=== PATIENT | female | born 1985 | race Caucasian/White ===

== ENCOUNTER → 2021-11-26 13:52 | Outpatient (BNVA) | payer SELFPAY | PROVIDERS: Family Provider Nurse Practitioner Family; PCP Nurse Practitioner Family; Visit Provider Nurse Practitioner Family | DX: R10.9 Unspecified abdominal pain (principal); A64 Unspecified sexually transmitted disease | CPT/HCPCS: 81000; 81025 ==

== ENCOUNTER → 2021-12-03 09:50 | Outpatient (BNVA) | payer SELFPAY | PROVIDERS: Family Provider Nurse Practitioner Family; PCP Nurse Practitioner Family; Visit Provider Nurse Practitioner Family | DX: A64 Unspecified sexually transmitted disease (principal); Z72.51 High risk heterosexual behavior | CPT/HCPCS: 87491; 87591; 87661 ==

== ENCOUNTER → 2022-04-07 09:37 | Outpatient (BNVA) | payer SELFPAY | PROVIDERS: Family Provider Nurse Practitioner Family; PCP Nurse Practitioner Family; Visit Provider Nurse Practitioner Family | DX: N89.8 Other specified noninflammatory disorders of vagina (principal) | CPT/HCPCS: 81003; 87070; 87205 ==

== ENCOUNTER 2022-05-09 08:39 | Emergency (ER) | payer MEDICAID, SELFPAY ==
[2022-05-09 08:53] VITALS: BP 117/81; BMI 30.1
--- NOTE | 2022-05-09 09:08 | XRR_ITS ---
PROCEDURE INFORMATION: Exam: XR Left Shoulder Exam date and time: 05/09/2022 9:17 AM Age: 37 years old Clinical indication: Pain; Upper arm; Left TECHNIQUE: Imaging protocol: Radiologic exam of the Left shoulder. Views: 2 or more views. COMPARISON: CR XR cervical spine 3V* [id number] 08/30/2018 9:52 AM FINDINGS: Bones/joints: The glenohumeral and acromioclavicular joints are normally aligned. No acute fracture is seen. No significant degenerative changes Lungs: 4 mm nodule in the partially visualized left upper lung possibly a granuloma. Soft tissues: Unremarkable. XR/XR shoulder LT min 2V* [id number] IMPRESSION: 1. No fracture or dislocation in the shoulder joint. No significant degenerative changes. 2. 4 mm nodule in the partially visualized left upper lung possibly a granuloma.
[2022-05-09] MEDS: ketorolac 30 mg/mL INJ 15 MG IM (09:16)
--- NOTE | 2022-05-09 09:20 | W.ED.EXTPRO ---
HPI - Extremity Problem General: Chief complaint: Extremity Problem,Nontraumatic Stated complaint: Sugar problems Time Seen by Provider: 05/09/22 08:59 History of Present Illness: 37-year-old female presents with left shoulder pain and left upper back pain. She reports that she think she has a pinched nerve patient saw her primary care provider 4 days ago and started on 3 days of prednisone and Flexeril. She reports that she continues to have pain. Patient has no known injury. She has no decreased range of motion. She is no fevers chills or other systemic complaints. Review of Systems General: Reports: 10 or more systems reviewed and unremarkable except in HPI and below Musc: Reports: back pain and joint pain; Denies: neck pain, extremity swelling or joint redness PFSH ED PFSH: Social History Smoking and tobacco status: never smoked Second hand smoke exposure: No Smoking risk assessment/counseling performed?: Yes Alcohol intake: never Desire information about alcohol rehabilitation?: No Counseling given: No Desire information about substance/drug rehabilitation?: No Counseling given: No Adopted: No Caregiver/support person: No Lives independently: Yes Household members: children Housing: House Marital status: Single Number of children: 4 Highest education level completed: Associate Degree: Occupational, Technical, Vocational Program service: No Current occupational status: employed History of recent travel: No Physical Exam Const: COMMON NORMALS: no acute distress, patient oriented x3, no limitations and alert Chest: COMMONS NORMALS: normal inspection of the chest Resp: COMMON NORMALS: normal respiratory effort and No retractions Cardio: COMMON NORMALS: regular rate and regular rhythm RATE: regular rate RHYTHM: regular rhythm Extremity: COMMON NORMALS: normal to inspection, full ROM, no joint enlargement and no clubbing, cyanosis or edema NARRATIVE EXTREMITY EXAM: Tenderness to palpation, left paraspinal, left posterior shoulder along trapezius distribution. No neck tenderness. No decreased range of motion. Neuro: COMMON NORMALS: patient oriented x3, moves all extremities, no focal motor deficits and no sensory deficits noted SENSORIUM/ORIENTATION: Yes alert Psych: COMMON NORMALS: mental status grossly normal, Normal thought process present, cooperative and normal affect THOUGHT PROCESS: Normal thought process present Skin: COMMON NORMALS: no rashes or lesions noted and no wounds GENERAL SKIN EXAM: no rashes or lesions noted Course Vital Signs: Vital signs: Vital Signs Blood Pressure 117/81 05/09/22 08:53 MDM - Extremity (Nontraumatic) Medical Decision Making Patient shoulder shows no acute findings. Discussed with patient that she will need to follow-up with her primary care provider for further outpatient management including possible physical therapy or orthopedic surgery consultation. Patient provided Mobic in addition to her already prescribed Flexeril. Also discussed topical cyclobenzaprine, lidocaine, warm moist heat and supportive care. Patient stable and discharged home Lab Data Radiology Impressions Shoulder X-Ray 05/09/22 09:08 IMPRESSION: 1. No fracture or dislocation in the shoulder joint. No significant degenerative changes. 2. 4 mm nodule in the partially visualized left upper lung possibly a granuloma. Discharge Plan Discharge Condition: Stable Prescriptions: No Action prednisone 20 mg tablet 20 mg PO BID Qty: 6 0RF cyclobenzaprine 10 mg tablet 10 mg PO BID Qty: 14 0RF amoxicillin-pot clavulanate 875-125 mg tablet 1 tab PO BID Qty: 20 0RF Referrals: Colette Little FNP-C [Primary Care Provider] - Coding Level of Care Code ED Preschool Principal for Chg Fwd Exam Comprehensive
[2022-05-09 09:58] VITALS: BP 112/86; PULSE 64; RESP 20; O2SAT 95
== END 2022-05-09 10:00 | disposition home or self-care (01) ==
PROVIDERS: Emergency Provider Student in an Organized Health Care Education/Training Program; PCP Nurse Practitioner Family
DX: M25.512 Pain in left shoulder (principal); M54.6 Pain in thoracic spine
CPT/HCPCS: 73030; 96372; 99284; J1885

== ENCOUNTER → 2022-05-12 11:29 | Outpatient (BNVA) | payer MEDICAID, SELFPAY | PROVIDERS: PCP Nurse Practitioner Family; Visit Provider Nurse Practitioner Family | DX: R20.0 Anesthesia of skin (principal) | CPT/HCPCS: 72040 ==

== ENCOUNTER → 2022-05-20 14:37 | Outpatient (BNVA) | payer MEDICAID, SELFPAY | PROVIDERS: PCP Nurse Practitioner Family; Referring Provider Nurse Practitioner Family; Visit Provider Physician Assistant | DX: M47.22 Other spondylosis with radiculopathy, cervical region (principal) | CPT/HCPCS: 72040 ==

== ENCOUNTER 2022-07-20 07:56 | Outpatient (CLI) | payer MEDICAID, SELFPAY ==
--- NOTE | 2022-07-20 08:00 | MR_ITS ---
WS: [id number] MRI CERVICAL SPINE NONCONTRAST HISTORY: Neck pain and LEFT upper extremity pain for 6 months. COMPARISON: Cervical spine radiographs 05/20/2022 Technique: Multiplanar, multisequence noncontrast imaging of the cervical spine. Mild straightening and RIGHT curvature of the cervical spine. No fracture or marrow edema. Signal within the cervical cord is normal. Visualized posterior fossa is unremarkable. Craniocervical junction, C1 and C2 relationship, odontoid process and soft tissues are normal. C2-C3: Normal. C3-C4: Normal. C4-C5: Very mild LEFT foraminal narrowing. No osteophyte or disc protrusion is identified. May be mil d asymmetry and related to normal variation. C5-C6: Mild annular disc bulging with a moderate LEFT paracentral and foraminal disc osteophyte compl ex. Mild encroachment upon the LEFT lateral thecal sac and LEFT foramen. No high-grade stenosis. Bila teral facet joint arthritis. C6-C7: Diffuse annular disc bulging and osteophytic ridging. Moderate to large LEFT paracentral and L EFT foraminal disc osteophyte. Significant deformity of the LEFT lateral thecal sac and moderate narr owing of the LEFT foramen. C7-T1: Small RIGHT foraminal osteophyte. No stenosis. Paraspinal soft tissue are normal. MR/MR cervical spin wo con* [id number] IMPRESSION: 1. Moderate to large LEFT paracentral and LEFT foraminal disc osteophyte compl ex at C6-7 with contact and deformity of the LEFT lateral thecal sac and forame n. Moderate LEFT foraminal stenosis. 2. Moderate LEFT paracentral and foraminal disc osteophyte at C5-6. Very mild foraminal narrowing and facet joint arthritis.
== END 2022-07-20 07:57 | disposition home or self-care (01) ==
PROVIDERS: PCP Nurse Practitioner Family; Visit Provider Physician Assistant
DX: M79.602 Pain in left arm (principal); M25.78 Osteophyte, vertebrae; M48.02 Spinal stenosis, cervical region; M47.892 Other spondylosis, cervical region
CPT/HCPCS: 72141

== ENCOUNTER → 2022-09-29 11:01 | Outpatient (BNVA) | payer MEDICAID, SELFPAY | PROVIDERS: PCP Nurse Practitioner Family; Visit Provider Anesthesiology Pain Medicine | DX: M47.22 Other spondylosis with radiculopathy, cervical region (principal); M47.812 Spondylosis without myelopathy or radiculopathy, cervical region; M25.559 Pain in unspecified hip | CPT/HCPCS: 73502 ==

== ENCOUNTER 2022-10-12 11:16 | Outpatient (CLI) | payer MEDICAID, SELFPAY | END 2022-10-12 11:17 | disposition home or self-care (01) | LOC: SPT 11:17 | PROVIDERS: PCP Nurse Practitioner Family; Visit Provider Orthopaedic Surgery | DX: Z46.89 Encounter for fitting and adjustment of other specified devices (principal); M47.22 Other spondylosis with radiculopathy, cervical region | CPT/HCPCS: 97760; L0172 ==

== ENCOUNTER 2022-11-01 05:46 | Day surgery (SDC) | payer MEDICAID, SELFPAY ==
[2022-10-25 08:38] VITALS: BMI 31.8
--- NOTE | 2022-10-25 15:19 | ANES.PREANE2 ---
Pre-Anesthetic Assessment Height/Weight: Height 1.6 m Weight 81.647 kg Operation Date: 11/01/22 07:00 Proposed Procedures p Anterior Cervical Discectomy & Fusion ACDF w/ Anterior Interbody Fusion w/ Cage w/ Instrumentation w/ Allograft C5/6 1 C6/7 [id number],M47.22(Not Applicable) - Rosendo Anders, DO Familial anesthetic complications: none Was Beta Anabelle taken within 24 hours: N/A Was Clonidine taken within 24 hours: N/A Social No alcohol and No tobacco Exam alert, oriented x 3, clear to auscultation bilaterally and regular rate & rhythm Airway Submandibular: within normal limits Cervical ROM: within normal limits Mallampati: Class II Dentition: caps (upper arch bridge) Musc/skel Osteoarthritis/DJD Anesthetic Plan ASA status: 2 Anesthesia: General Medications/Allergies Home Medications Medication Instructions Recorded Confirmed Last Taken Type meloxicam 15 mg tablet 15 mg PO DAILY #10 tabs 05/09/22 10/25/22 10/12/22 Rx Tylenol 10/25/22 10/25/22 Unknown History Allergies Allergy/AdvReac Type Severity Reaction Status Date / Time No Known Allergies Allergy Verified 10/20/22 14:18 [facility] Anesthesia Social History Smoking and tobacco status: never smoked Second hand smoke exposure: No Smoking risk assessment/counseling performed?: Yes Alcohol intake: never Desire information about alcohol rehabilitation?: No Counseling given: No Desire information about substance/drug rehabilitation?: No Counseling given: No Adopted: No Caregiver/support person: No Lives independently: Yes Household members: children Housing: House Marital status: Single Number of children: 4 Highest education level completed: Associate Degree: Occupational, Technical, Vocational Program service: No Current occupational status: employed Female Reproductive History Date of last menstrual period: 10/09/22 Data Anesthesia Cardiac Studies: No Data to Display
[2022-11-01] VITALS (12 sets, daily range): BP systolic 109–153; BP diastolic 70–95; PULSE 78–111; RESP 16–18; TEMP 36.1–36.7; O2SAT 91–99
--- NOTE | 2022-11-01 | XR_ITS ---
WS: [id number] Exam: XR cervical spine 3V* [id number] Date/Time of Exam: 11/01/2022 12:00 AM Reason For Exam: [facility] AP and lateral intraoperative C-arm images of the cervical spine are submitted for evaluation. These images were obtained for intraoperative purposes. The AP view depicts the anterior plate and screw fi xation extending from C5 to C7. An ET tube is noted in the airway.
[2022-11-01] MEDS: scopolamine 1.5 Patch 1 PATCH TRANSDERMA (06:17)
[2022-11-01] MEDS: sodium chloride 0.9% 1,000 ML 30 ML IV (06:18)
[2022-11-01 06:25] LABS: OR HCG Qualitative Urine Negative (Negative)
--- NOTE | 2022-11-01 06:32 | W.PM.OPSUD ---
Surgery/Procedure H&P Update DATE OF PROCEDURE: November 01, 2022 DATE H&P PERFORMED: 10/12/22 H&P UPDATE INFORMATION: I have reviewed H&P completed within last 30 days, I have examined patient prior to procedure and No changes to prior documentation PREOP DIAGNOSIS: Cervical spondylosis with radiculopathy PLANNED PROCEDURE: Operation Date: 11/01/22 07:00 Proposed Procedures p Anterior Cervical Discectomy & Fusion ACDF w/ Anterior Interbody Fusion w/ Cage w/ Instrumentation w/ Allograft C5/6 2251 C6/7 [id number],99769,M47.22(Not Applicable) - Rosendo Anders, DO
[2022-11-01] MEDS: ceFAZolin 2,000 MG in sodium chloride 0.9% (plus) 50 ML 100 MG IV (07:05)
--- NOTE | 2022-11-01 07:34 | P.ANESUD_ITS ---
Pre-Anesthetic Update Pre-Anesthetic Assessment: Date of Surgery/Procedure: 11/01/22 Preop Nella gnosis: Cervical spondylosis with radiculopathy Proposed Procedure: Operation Date: 11/01/22 07:00 Proposed Procedures p Anterior Cervical Discectomy & Fusion ACDF w/ Anterior Interbody Fusion w/ Cage w/ Instrumentation w/ Allograft C5/6 2251 C6/7 [id number],M47.22(Not Applicable) - Rosendo Anders, DO Any changes to Pre-Anesthetic Assessment?: No Last Intake: Intake Last Liquid Date 10/31/22 Last Liquid Time 21:00 Last Solid Date 10/31/22 Last Solid Time 21:00 Vitals: Temperature 97 F L 11/01/22 05:48 Temperature Source Temporal Artery S can 11/01/22 05:48 Pulse Rate 111 H 11/01/22 05:48 Respiratory Rate 18 11/01/22 05:48 Blood Pressure 153/95 11/01/22 05:48 Blood Pressure Sarah n 114 11/01/22 05:48 Pulse Oximetry 97 11/01/22 05:48 Oxygen Delivery Me thod Room Air 11/01/22 06:10 Exam: Pre-Anes Outpt Exam: alert, oriented x 3, clear to auscultation bilaterally and regular rate & rhythm Cardiac Studies: No Data to Display
[2022-11-01] MEDS: lidocaine-epi 1% 20 mL INJ INJECTION (07:35)
--- NOTE | 2022-11-01 09:02 | PC.NURSE ---
Pt arrived to PACU, O2 at 6L/min via simple mask. Dressing to anterior neck C/D/I, brace in place. Able to move all extremities.
--- NOTE | 2022-11-01 09:07 | P.OP_ITS ---
Operative Report Date of procedure: November 01, 2022 Pre-op diagnosis: Preop Diagnosis Cervical spondylosis with radiculopathy Post-op diagnosis: same Procedure done: 1. Anterior diskectomy C5/6 2. Anterior discectomy C6/7 3. Insertion of cage C5/6 4. Insertion of Cage C6/7 5. Instrumentation with anterior plate from C5-C7 6. Use of allograft Surgeon: Rosendo Anders Reclamation Furnace Operator: Tio Demarco Reclamation Furnace Operator: The surgical supervisor, Tio Demarco, LYUDMILA was needed for his expertise under the microscope. He was important and necessary throughout the procedure to complete in a safe and timely manner. He assisted with patient positioning prepping and draping tissue retraction suctioning of the operative field protection of the dural sac and tissue closure Estimated blood loss (mL): 25 Procedure: 1. Anterior diskectomy C5/6 2. Anterior discectomy C6/7 3. Insertion of cage C5/6 4. Insertion of Cage C6/7 5. Instrumentation with anterior plate from C5-C7 6. Use of allograft The patient was taken to the operating room, where he underwent general endotracheal anesthesia without complications. He was then positioned supine on the operating table, and all areas of impingement were well padded. The arms were carefully padded and tucked at his sides. A roll was placed between the shoulder blades.. An x-ray was done to determine the appropriate level for the skin incision. The entire neck was then sterilely prepped and draped in the usual fashion. Neuromonitoring was attached prior to prepping. A transverse skin incision was made and carried down to the platysma muscle. This was then split in line with its fibers. Blunt dissection was carried down medial to the carotid sheath and lateral to the trachea and esophagus until the anterior cervical spine was visualized. A needle was placed into a disc and an x-ray was done to determine its location. The longus colli muscles were then elevated bilaterally with the electrocautery unit. Self-retaining retractors were placed deep to the longus colli muscle. Attention was brought to the C5/6 level that was confirmed on x-ray. A caspar pin was placed into the C5 vertebrae and the C6 vertebrae. The disk space was then distracted. The microscope was then brought in. A radical anterior discectomies were performed at C5/6. This included complete removal of the anterior annulus, nucleus, and posterior annulus. The posterior longitudinal ligament was removed as were the posterior osteophytes. Foraminotomies were then accomplished bilaterally. This was done using a high speed nima, kerrison rongeurs and curretes Once all of this was accomplished, the curved currette was used to check for any residual compression. The central canal was wide open as were the foramen. A high-speed bur was used to remove the cartilaginous endplates above and below the interspace. Bleeding cancellous bone was exposed. The disc space were measured and appropriate size cage were placed sterilely onto the field. Allograft graft was packed into the cages. The cage was then placed and there was good juxtaposition against the bleeding decorticated surfaces and good distraction of each interspace. Attention was brought to the next interspace. The Ponsford pins were removed. Bone wax was used to prevent any bleeding from occurring at the pin sites. Attention was brought to the C6/7 level that was confirmed on x-ray. A caspar pin was placed into the C6 vertebrae and the C7 vertebrae. The disk space was then distracted. The microscope was then brought in. A radical anterior discectomies were performed at C6/7. This included complete removal of the anterior annulus, nucleus, and posterior annulus. The posterior longitudinal ligament was removed as were the posterior osteophytes. Foraminotomies were then accomplished bilaterally. This was done using a high speed nima, kerrison rongeurs and curretes Once all of this was accomplished, the curved currette was used to check for any residual compression. The central canal was wide open as were the foramen. A high-speed bur was used to remove the cartilaginous endplates above and below the interspace. Bleeding cancellous bone was exposed. The disc space were measured and appropriate size cage were placed sterilely onto the field. Allograft graft was packed into the cages. The cage was then placed and there was good juxtaposition against the bleeding decorticated surfaces and good distraction of each interspace. Attention was brought to the next interspace. The Ponsford pins were removed. Bone wax was used to prevent any bleeding from occurring at the pin sites. The appropriate size anterior cervical locking plate was chosen and bent into gentle lordosis. Two screws were then placed into each of the vertebral bodies at C5, C6, and C7. There was excellent purchase. A final x-ray was done confirming good position of the hardware and Cages. The locking screws were then applied, also with excellent purchase. Following a final copious irrigation, there was good hemostasis and no dural leaks. The carotid pulse was strong. The wounds were then closed in layers using 2-0 Vicryl suture for the platysma muscle, 2-0 Vicryl suture for the subcutaneous tissue, and 4-0 monocryl suture in a subcuticular skin closure. Glue was placed followed by application of a sterile dressing. The drain was hooked to bulb suction. A soft collar was applied. The patient was then carefully returned to the supine position on his hospital bed where he was reversed and extubated and taken to the recovery room having tolerated the procedure well.
[2022-11-01] MEDS: fentaNYL 50 mcg/mL INJ 2mL IVP (09:20)
[2022-11-01] MEDS: HYDROcodone-acetaminophen 5-325 mg Tablet 2 TAB PO (10:14)
--- NOTE | 2022-11-01 15:21 | ANE.PACU2 ---
Inpatient post-anesthesia follow up: Airway intact: Yes Vital signs: Temperature 98 F Pulse Rate 89 Respiratory Rate 18 Blood Pressure 147/88 Pulse Oximetry 95 Oxygen Delivery Me thod Room Air Oxygen Flow Rate 1 Fraction of Inspir ed Oxygen Hydration adequate: Yes Nausea and vomiting: No Pain level: 4 Mental status: Baseline
== END 2022-11-01 10:59 | disposition home or self-care (01) ==
PROVIDERS: Physician Assistant; PCP Nurse Practitioner Family; Visit Provider Orthopaedic Surgery
PROC: 0RB30ZZ Excision of Cervical Vertebral Disc, Open Approach (ICD-10-PCS; CPT 22551; principal; 2022-11-01 07:00)
DX: M47.22 Other spondylosis with radiculopathy, cervical region (principal); Z79.899 Other long term (current) drug therapy
CPT/HCPCS: 20930; 22551; 22552 ×2; 22845; 22853 ×2; 72040; 76000; 81025; 84703; C1713; C1763; C9359; J0690; J1100; J1170; J2405; J2704; J3010; J3490; J7030

== ENCOUNTER 2022-11-10 08:01 | Outpatient (CLI) | payer MEDICAID, SELFPAY ==
--- NOTE | 2022-11-10 08:00 | MR_ITS ---
WS: [id number] EXAMINATION: MR hip RT wo con* [id number] ORDER DATE: 11/10/2022 8:20 AM COMPARISON: None. HISTORY: pain CONTRAST: None. TECHNIQUE: Coronal STIR of the Pelvis. Coronal proton density, coronal T1, axial T2 fat sat, axial T1 , sagittal T2 fat sat, and sagittal T1 performed of the hip. After contrast, axial T1 fat sat, coron al T1 fat sat, and sagittal T1 fat sat were performed. FINDINGS: Normal anatomic alignment. No acute fractures. Normal bone marrow signal in the femoral head and neck . Normal acetabulum. No suspicious abnormalities in the ischium corresponding to the sclerotic focus described on the prior radiograph. Normal visualized pubic rami. No significant joint effusion. Normal bone marrow signal in the pelvis and sacrum. Normal bone marrow signal in the proximal femurs. Multifollicular ovaries bilaterally. MR/MR hip RT wo con* [id number] IMPRESSION: 1. No acute RIGHT hip findings. 2. Normal bone marrow signal in the RIGHT femoral head and neck. 3. Normal bone marrow signal in the RIGHT acetabulum. 4. Normal bone marrow signal in the pelvis and sacrum. 5. No other suspicious findings.
== END 2022-11-10 08:02 | disposition home or self-care (01) ==
LOC: RAD 08:04
PROVIDERS: PCP Nurse Practitioner Family; Visit Provider Orthopaedic Surgery
DX: M25.551 Pain in right hip (principal)
CPT/HCPCS: 73130; 73721

== ENCOUNTER → 2022-11-16 11:22 | Outpatient (BNVA) | payer MEDICAID, SELFPAY | PROVIDERS: PCP Nurse Practitioner Family; Visit Provider Physician Assistant | DX: Z98.1 Arthrodesis status (principal) | CPT/HCPCS: 72040 ==

== ENCOUNTER → 2022-12-14 08:57 | Outpatient (BNVA) | payer MEDICAID, SELFPAY | PROVIDERS: PCP Nurse Practitioner Family; Visit Provider Physician Assistant | DX: Z98.1 Arthrodesis status (principal) | CPT/HCPCS: 72040 ==

== ENCOUNTER → 2023-01-25 13:35 | Outpatient (BNVA) | payer MEDICAID, SELFPAY | PROVIDERS: PCP Nurse Practitioner Family; Visit Provider Orthopaedic Surgery | DX: Z98.1 Arthrodesis status (principal) | CPT/HCPCS: 72040 ==

== ENCOUNTER 2023-02-02 06:00 | Outpatient (RCR) | payer MEDICAID, SELFPAY | END 2023-02-07 23:59 | disposition home or self-care (01) | LOC: APT 06:00 | PROVIDERS: Visit Provider Orthopaedic Surgery | DX: M54.2 Cervicalgia (principal); G89.29 Other chronic pain | CPT/HCPCS: 97161 ==

== ENCOUNTER 2023-02-08 06:00 | Outpatient (RCR) | payer MEDICAID, SELFPAY | END 2023-03-10 23:59 | disposition home or self-care (01) | LOC: APT 06:00 | PROVIDERS: Visit Provider Orthopaedic Surgery | DX: M54.2 Cervicalgia (principal); G89.29 Other chronic pain; Z98.1 Arthrodesis status | CPT/HCPCS: 97110; 97530 ==

== ENCOUNTER → 2023-03-08 15:04 | Outpatient (BNVA) | payer MEDICAID, SELFPAY | PROVIDERS: PCP Nurse Practitioner Family; Visit Provider Orthopaedic Surgery | DX: Z98.1 Arthrodesis status (principal); Z47.89 Encounter for other orthopedic aftercare | CPT/HCPCS: 72040 ==

== ENCOUNTER → 2023-03-29 11:47 | Outpatient (BNVA) | payer MEDICAID, SELFPAY | PROVIDERS: PCP Nurse Practitioner Family; Visit Provider Nurse Practitioner Family | DX: R05.9 Cough, unspecified (principal); J01.40 Acute pansinusitis, unspecified; Z20.822 Contact with and (suspected) exposure to COVID-19 | CPT/HCPCS: 87426 ==

== ENCOUNTER → 2023-05-13 10:24 | Outpatient (BNVA) | payer MEDICAID, SELFPAY | PROVIDERS: PCP Nurse Practitioner Family; Visit Provider Nurse Practitioner Family | DX: R30.0 Dysuria (principal); N39.0 Urinary tract infection, site not specified | CPT/HCPCS: 81000 ==

== ENCOUNTER → 2023-06-07 08:47 | Outpatient (BNVA) | payer MEDICAID, SELFPAY | PROVIDERS: PCP Nurse Practitioner Family; Visit Provider Orthopaedic Surgery | DX: Z98.1 Arthrodesis status (principal) | CPT/HCPCS: 72040 ==

== ENCOUNTER → 2023-08-03 11:01 | Outpatient (BNVA) | payer MEDICAID, SELFPAY | PROVIDERS: PCP Nurse Practitioner Family; Visit Provider Nurse Practitioner Family | DX: M17.12 Unilateral primary osteoarthritis, left knee (principal); M25.562 Pain in left knee; M25.362 Other instability, left knee | CPT/HCPCS: 73562 ==

== ENCOUNTER 2024-02-09 09:07 | Emergency (ER) | payer MEDICAID, SELFPAY ==
--- NOTE | 2024-02-09 09:16 | CT_ITS ---
WS: [id number] CT HEAD TECHNIQUE: Noncontrast CT of the head obtained from the skullbase to the vertex. CLINICAL INFORMATION: trauma COMPARISON: None. DLP: 1090.[address] scans at [facility] use at least one of these dose optimization techniques: automated e xposure control; mA and/or kV adjustment per patient size (includes targeted exams where dose is matc hed to clinical indication); or iterative reconstruction. FINDINGS: No evidence of intracranial hemorrhage or mass effect. Ventricular system and basal cisterns are salazar nt. No extra-axial fluid collections. No evidence of mass or mass effect. Normal deras-white different iation. Incidental slightly low-lying cerebellar tonsils. Paranasal sinuses and mastoid air cells are well aerated. .Normal visualized soft tissues. CT/CT head wo con* [id number] IMPRESSION: 1. No evidence of intracranial hemorrhage or mass effect. 2. No acute intracranial findings.
--- NOTE | 2024-02-09 09:16 | CT_ITS ---
WS: [id number] CT CERVICAL TRAUMA TECHNIQUE: Noncontrast CT of the cervical spine with coronal and sagittal reformatted images. CLINICAL INFORMATION: trauma COMPARISON: None. DLP: 198.[address] scans at [facility] use at least one of these dose optimization techniques: automated e xposure control; mA and/or kV adjustment per patient size (includes targeted exams where dose is matc hed to clinical indication); or iterative reconstruction. FINDINGS: Straightening of the normal cervical lordosis. Previous postoperative changes ACDF C5-C7. Normal craniocervical junction. Normal C1-C2 articulation. Dens is normal in appearance. Normal occip ital condyles. No high-grade spinal canal narrowing. Normal C1 ring. No evidence of acute fracture or dislocation. Reactive cervical lymph nodes. Normal prevertebral soft tissues. Mastoids air cells are well aerated. CT/CT cervical spin wo con* [id number] IMPRESSION: No evidence of acute fracture or dislocation.
[2024-02-09 09:22] VITALS: BP 127/76; PULSE 102; RESP 18; TEMP 36.5; O2SAT 99; BMI 31.8
[2024-02-09 09:32] LABS: Basophils # 0.1 10^3/uL (0.0-0.1); Basophils % 0.6 %; Eosinophils # 0.2 10^3/uL (0.0-0.8); Hematocrit 42.9 % (36-47); Lymphocytes # 1.7 10^3/uL (0.8-4.8); Lymphocytes % 16.8 %; Mean Corpuscular HGB Conc 32.4 g/dL (30-55); Mean Corpuscular Hemoglobin 27.9 pg (27-33); Mean Platelet Volume 9.7 fL (7.4-10.4); Monocytes # 0.7 10^3/uL (0.2-0.9); Monocytes % 6.5 %; Neutrophils # 7.55 10^3/uL (1.8-7.7); Neutrophils % 73.9 %; Nucleated Red Blood Cells % 0 %; Platelet Count 279 10^3/cmm (157-399); Red Blood Count 4.99 10^6/uL (3.85-5.65); White Blood Count 10.21 10^3/uL (3.29-11.43)
--- NOTE | 2024-02-09 09:33 | XR_ITS ---
WS: [id number] Portable AP upright chest, 02/09/2024 Clinical Data: dyspnea/cough Comparison: Two-view chest, 11/25/2005. Findings: No nodules, masses or effusions are seen. The heart is normal. The pulmonary vascularity is not increased. No pneumonia or pneumothorax is seen. There is an anterior cervical disc fusion. XR/XR chest 1V portable [id number] Impression: Negative chest.
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
[2024-02-09 09:50] LABS: Alanine Aminotransferase 12 U/L (0-33); Albumin Level 4.3 g/dL (3.5-5.2); Alkaline Phosphatase 53 U/L (35-105); Anion Gap 16.8 (5-19); Aspartate Amino Transferase 12 U/L (0-32); Blood Urea Nitrogen 7 mg/dL (6-20); Calcium 9.1 mg/dL (8.5-10.5); Carbon Dioxide 20 mmol/L (22-29); Chloride 107 mmol/L (98-107); Creatinine Clr Calc Pharmacy 126.1203; Globulin 3.8 g/dL (1.3-4.6); Glomerular Filtration Rate 110.7 mL/min (90-130); Glucose 112 mg/dL (65-115); Osmolality Calculated 289 mOsm/kg (285-295); Potassium 3.8 mmol/L (3.5-5.1); Sodium 140 mmol/L (136-145); Total Bilirubin 0.5 mg/dL (0.15-1.2); Total Protein 8.1 g/dL (6.6-8.7)
[2024-02-09 10:16] LABS: Charge for UA Resulting for Rev
[2024-02-09 10:24] LABS: Bilirubin Urine Negative (Negative); Blood Urine 2+ (Negative); Glucose Urine UA Negative (Normal); Ketones Urine Negative (Negative); Leukocyte Esterase Urine Trace (Negative); Nitrate Urine Negative (Negative); Protein Urine Negative (Negative); Urine Appearance Cloudy (CLEAR); Urine Color Yellow (Yellow); Urobilinogen Urine 0.2 mg/dL (Negative)
[2024-02-09 10:26] LABS: Bacteria Urine 1+ /hpf; Hyaline Casts Urine 2.05 /lpf
[2024-02-09 10:41] VITALS: BP 117/85
[2024-02-09 10:46] LABS: Add Urine Culture? No
[2024-02-09 11:15] VITALS: BP 117/85
== END 2024-02-09 11:15 | disposition home or self-care (01) ==
PROVIDERS: Emergency Provider Family Medicine; PCP Family Medicine
DX: S13.4XXA Sprain of ligaments of cervical spine, initial encounter (principal); V49.40XA Driver injured in collision with unspecified motor vehicles in traffic accident, initial encounter
CPT/HCPCS: 36415; 70450; 71045; 72125; 80053; 81003; 81015; 85025; 99284

== ENCOUNTER → 2024-02-23 14:37 | Outpatient (BNVA) | payer MEDICAID, SELFPAY | PROVIDERS: PCP Family Medicine; Visit Provider Orthopaedic Surgery | DX: Z98.1 Arthrodesis status (principal) | CPT/HCPCS: 72040 ==

== ENCOUNTER 2024-04-04 14:00 | Outpatient (CLI) | payer MEDICAID, SELFPAY ==
--- NOTE | 2024-04-04 13:45 | MR_ITS ---
WS: [id number] MRI CERVICAL SPINE NONCONTRAST HISTORY: Neck Pain COMPARISON: 07/20/2022 Technique: Multiplanar, multisequence noncontrast imaging of the cervical spine. Status post anterior cervical fusion from C5-C7 with interbody spacers since the prior MRI of 07/20/19 23. Mild straightening of the normal cervical lordosis. No fusion complications. Facet joints are nor adelita aligned. No marrow edema or fracture. Signal within the cervical cord is normal. Visualized posterior fossa is unremarkable. Craniocervical junction, C1 and C2 relationship, odontoid process and soft tissues are normal. C2-C3: Normal. C3-C4: Normal. C4-C5: Normal. C5-C6: Small proximal LEFT foraminal osteophyte. Very slight narrowing of the proximal LEFT foramen. C6-C7: Mild bilateral osteophytic ridging, LEFT greater than RIGHT. Mild to moderate LEFT foraminal s tenosis. C7-T1: Small foraminal osteophytes. No stenosis. Small bilateral cervical chain lymph nodes. Several lymph nodes are identified but these are small ca liber. MR/MR cervical spin wo con* [id number] IMPRESSION: 1. Status post anterior cervical fusion from C5-C7 with interbody spacers. Ant erior fusion is new since 07/20/2022. No complications are evident. 2. LEFT foraminal osteophytes at C5-6 and C6-7. Mild to moderate stenosis LEFT foramen at C6-7 and only mild at C5-6. 3. No marrow edema or acute fracture.
== END 2024-04-04 14:01 | disposition home or self-care (01) ==
PROVIDERS: PCP Family Medicine; Visit Provider Orthopaedic Surgery
DX: M99.61 Osseous and subluxation stenosis of intervertebral foramina of cervical region (principal); M43.22 Fusion of spine, cervical region; Z98.890 Other specified postprocedural states
CPT/HCPCS: 72141

== ENCOUNTER 2024-05-02 06:00 | Outpatient (RCR) | payer MEDICAID, SELFPAY | END 2024-05-10 23:59 | disposition home or self-care (01) | LOC: TPT 06:00 | PROVIDERS: Visit Provider Orthopaedic Surgery | DX: M54.2 Cervicalgia (principal); G89.29 Other chronic pain | CPT/HCPCS: 97110; 97162 ==

== ENCOUNTER 2024-05-11 06:00 | Outpatient (RCR) | payer MEDICAID, SELFPAY | END 2024-06-09 23:59 | disposition home or self-care (01) | LOC: TPT 06:00 | PROVIDERS: Visit Provider Orthopaedic Surgery | DX: M54.2 Cervicalgia (principal); G89.29 Other chronic pain | CPT/HCPCS: 97110 ==